=== PATIENT | female | born 1990 | race Caucasian/White ===

== ENCOUNTER 2016-06-15 10:16 | Emergency (ER) | payer SELFPAY ==
[2016-06-15] MEDS ORDERED: CEFTRIAXONE 1 GM VIAL ONE (11:53)
[2016-06-15] MEDS ORDERED: LIDOCAINE 1% MDV 20 ML ONE (11:53)
== END 2016-06-15 12:37 | disposition home or self-care (01) ==
LOC: ER 10:16
DX: J15.9 Unspecified bacterial pneumonia (principal)
CPT/HCPCS: 71020; 96372